=== PATIENT | male | born 1990 | race Caucasian/White ===

== ENCOUNTER 2019-08-10 22:58 | Emergency (ER) | payer SELFPAY ==
[2019-08-11 00:49] LABS: ABS Eosinophils 0.1 10^3/ul (0-0.6); ABS Lymphocytes 2.5 10^3/ul (1.0-4.8); ABS Monocytes 0.6 10^3/ul (0-0.8); Eosinophil % 0.7 %; Hematocrit 47 % (42-52); Hemoglobin 16.6 g/dL (14.0-18.0); Lymphocyte % 22.5 %; Mean Corpuscular HGB Conc 36 g/dL (31-36); Mean Corpuscular Hemoglobin 30 pg (27-31); Mean Corpuscular Volume 85 fL (80-94); Mean Platelet Volume 7.3 fL (7.4-10.4); Nucleated Red Blood Cells % 0.1; Platelet Count 328 10^3/uL (150-450); Red Blood Count 5.48 10^6 /uL (4.18-5.48); Red Cell Distribution Width 13 % (10-15); White Blood Count 11.1 10^3/uL (3.5-10.8)
[2019-08-11 01:07] LABS: ALT 58 U/L (7-52); AST 37 U/L (13-39); Albumin 4.7 g/dL (3.2-5.2); Albumin/Globulin Ratio 1.3 (1-3); Alkaline Phosphatase 57 U/L (34-104); Anion Gap 9 mmol/L (2-11); BUN/Creatinine Ratio 14.9 (8-20); Blood Urea Nitrogen 14 mg/dL (6-24); C Reactive Protein 6.28 mg/L (<8.01); CO2 Carbon Dioxide 23 mmol/L (22-32); Calcium 10.1 mg/dL (8.6-10.3); Chloride 104 mmol/L (101-111); EGFR Non-African American 94.2 (>60); Globulin 3.5 g/dL (2-4); Glucose 106 mg/dL (70-100); Potassium 4.3 mmol/L (3.5-5.0); Sodium 136 mmol/L (135-145); Total Protein 8.2 g/dL (6.4-8.9)
[2019-08-11 01:13] LABS: Urine Appearance Clear; Urine Bilirubin Negative (Negative); Urine Blood Negative (Negative); Urine Color Straw; Urine Glucose Negative (Negative); Urine Ketones Negative (Negative); Urine Nitrite Negative (Negative); Urine Protein Negative (Negative); Urine Specific Gravity 1.006 (1.010-1.030); Urine Urobilinogen Negative (Negative)
[2019-08-11 01:28] LABS: Alcohol, S < 10 mg/dL (<10)
[2019-08-11 01:29] LABS: Urine Benzodiazepine Screen None Detected (None Detect); Urine Opiates Screen None Detected (None Detect)
[2019-08-11 01:43] LABS: TSH (Thyroid Stimulating Horm) 2.24 mcIU/mL (0.34-5.60)
[2019-08-11 04:02] VITALS: BP 136/84
== END 2019-08-11 03:56 | disposition home or self-care (01) ==
LOC: ED 22:58